=== PATIENT | male | born 1975 | race Caucasian/White ===

== ENCOUNTER 2017-10-06 03:18 | Emergency (ER) | payer OTHER ==
[2017-10-06] MEDS ORDERED: ASPIRIN 81 MG TABLET, CHEWABLE PO ONE (03:38)
[2017-10-06 03:53] LABS: ABSOLUTE BASOPHILS # (AUTO) 0.1 10^3/uL (0.0-0.2); ABSOLUTE EOSINOPHILS # (AUTO) 0.5 10^3/uL (0.0-0.6); ABSOLUTE LYMPHOCYTES (AUTO) 2.8 10^3/uL (0.5-4.7); ABSOLUTE MONOCYTES (AUTO) 0.7 10^3/uL (0.1-1.4); ABSOLUTE NEUT (AUTO) 5.4 10^3/uL (1.7-8.2); BASOPHILS % (AUTO) 0.8 % (0-2); EOSINOPHILS % (AUTO) 4.9 % (0-6); HEMATOCRIT 42.6 % (37.9-51.0); HEMOGLOBIN 14.4 g/dL (13.5-17.0); LYMPHOCYTES % (AUTO) 30.3 % (13-45); MEAN CORPUSCULAR HEMOGLOBIN 29.3 pg (27.0-33.4); MEAN CORPUSCULAR HGB CONC 33.7 g/dL (32.0-36.0); MEAN CORPUSCULAR VOLUME 87 fl (80-97); PLATELET COUNT 268 10^3/uL (150-450); TOTAL CELLS COUNTED % (AUTO) 100 %; WHITE BLOOD COUNT 9.4 10^3/uL (4.0-10.5)
[2017-10-06 03:58] LABS: ALANINE AMINOTRANSFERASE 64 U/L (21-72); ALBUMIN 3.9 g/dL (3.5-5.0); ALKALINE PHOSPHATASE 80 U/L (38-126); ANION GAP 8 (5-19); ASPARTATE AMINO TRANSFERASE 24 U/L (17-59); BLOOD UREA NITROGEN 19 mg/dL (7-20); CALCIUM 9.2 mg/dL (8.4-10.2); CARBON DIOXIDE 30 mmol/L (22-30); CHLORIDE 103 mmol/L (98-107); CREATINE KINASE 301 U/L (55-170); GLUCOSE 137 mg/dL (75-110); POTASSIUM 3.8 mmol/L (3.6-5.0); TOTAL PROTEIN 6.4 g/dL (6.3-8.2)
[2017-10-06] MEDS ORDERED: PANTOPRAZOLE SODIUM 40 MG VIAL IV ONE (03:58)
[2017-10-06] MEDS ORDERED: ONDANSETRON HCL INJ/PF 4 MG/2 ML SDV IV ONE (04:01)
--- NOTE | 2017-10-06 04:04 | ER Document Report ---
ED General - General Mode of Arrival: Medic Information source: Patient - HPI Patient complains to provider of: Chest Pain Onset: This morning - 0200 Associated symptoms: Other - see notes above <RUSTY LOPEZ - Last Filed: 10/06/17 04:04> <PANDA GONZALEZ - Last Filed: 10/06/17 06:02> - General Chief Complaint: Chest Pain Stated Complaint: CHEST PAIN Time Seen by Provider: 10/06/17 03:24 Notes: 41 year old male presents to the ED via EMS complaining of generalized chest pain that woke the patient up from sleep at 0200 this morning. Patient reports that he had a few drinks tonight. Patient has a past abdominal surgery secondary to diverticulitis. (RUSTY LOPEZ) - Related Data Allergies/Adverse Reactions: No Known Allergies Allergy (Unverified 10/06/17 04:50) Past Medical History - General Information source: Patient - Social History Smoking Status: Current Every Day Smoker Frequency of alcohol use: Heavy Family History: Reviewed & Not Pertinent - Medical History Medical History: Negative Past Surgical History: Reports: Hx Abdominal Surgery - diverticulitis <RUSTY LOPEZ - Last Filed: 10/06/17 04:04> Review of Systems - Review of Systems Constitutional: No symptoms reported EENT: No symptoms reported Cardiovascular: See HPI, Chest pain Respiratory: No symptoms reported Gastrointestinal: No symptoms reported Genitourinary: No symptoms reported Male Genitourinary: No symptoms reported Musculoskeletal: No symptoms reported Skin: No symptoms reported Hematologic/Lymphatic: No symptoms reported Neurological/Psychological: No symptoms reported -: Yes All other systems reviewed and negative <RUSTY LOPEZ - Last Filed: 10/06/17 04:04> Physical Exam <RUSTY LOPEZ - Last Filed: 10/06/17 04:04> - Vital signs Interpretation: Normal - General General appearance: Alert In distress: Mild - HEENT Head: Normocephalic, Atraumatic Eyes: Normal Pupils: PERRL - Respiratory Respiratory status: No respiratory distress Chest status: Nontender Breath sounds: Normal Chest palpation: Normal - Cardiovascular Rhythm: Regular Heart sounds: Normal auscultation Murmur: No - Abdominal Inspection: Normal Distension: No distension Bowel sounds: Normal Tenderness: Tender - Mild epigastric Organomegaly: No organomegaly - Back Back: Normal, Nontender - Extremities General upper extremity: Normal inspection, Nontender, Normal color, Normal ROM , Normal temperature General lower extremity: Normal inspection, Nontender, Normal color, Normal ROM , Normal temperature, Normal weight bearing. No: Minnie's sign - Neurological Neuro grossly intact: Yes Cognition: Normal Orientation: AAOx4 [place] Coma Scale Eye Opening: Spontaneous [place] Coma Scale Verbal: Oriented Andi Coma Scale Motor: Obeys Commands [place] Coma Scale Total: 15 Speech: Normal Motor strength normal: LUE, RUE, LLE, RLE Sensory: Normal - Psychological Associated symptoms: Normal affect, Normal mood - Skin Skin Temperature: Warm Skin Moisture: Dry Skin Color: Normal <PANDA GONZALEZ - Last Filed: 10/06/17 06:02> - Vital signs Vitals: Pulse Ox 97 10/06/17 03:30 - General Notes: in pain (PANDA GONZALEZ) Course - Laboratory Result Diagrams: 10/06/17 03:36 10/06/17 03:36 <RUSTY LOPEZ - Last Filed: 10/06/17 04:04> - Laboratory Result Diagrams: 10/06/17 03:36 10/06/17 03:36 - Diagnostic Test Radiology reviewed: Reports reviewed - EKG Interpretation by Me EKG shows normal: Sinus rhythm Rate: Normal Rhythm: NSR <PANDA GONZALEZ - Last Filed: 10/06/17 06:02> - Re-evaluation Re-evalutation: 10/06/17 04:50 Patient is a 41-year-old male who comes in today complaining of epigastric and chest pain. Denies any radiation to his back. Patient has been drinking this evening. Denies any trauma. Patient denies any past medical history except for diverticulitis. He has had surgery for diverticulitis in the past. 10/06/17 05:59 Patient has had complete resolution of symptoms with GI cocktail. Patient is low risk for cardiac event. No evidence for PE. Symptoms are epigastric pain radiating into his chest consistent with reflux/gastritis. Patient was drinking this past evening. No evidence for pancreatitis. He will be discharged home with GI medications. Follow-up with PMD. Return if any worsening or concerning symptoms. (PANDA GONZALEZ) - Vital Signs Vital signs: Temp Pulse Resp BP Pulse Ox 97.7 F 18 113/64 98 10/06/17 04:05 10/06/17 04:01 10/06/17 04:01 10/06/17 04:42 - Laboratory Laboratory results interpreted by me: 10/06/17 03:36 Glucose 137 H Total Bilirubin < 0.1 L Creatine Kinase 301 H Discharge <RUSTY LOPEZ - Last Filed: 10/06/17 04:04> <APNDA GONZALEZ - Last Filed: 10/06/17 06:02> - Discharge Clinical Impression: Atypical chest pain GERD (gastroesophageal reflux disease) Qualifiers: Esophagitis presence: esophagitis presence not specified Qualified Code(s): K21.9 - Gastro-esophageal reflux disease without esophagitis Condition: Stable Disposition: HOME, SELF-CARE Instructions: Chest Pain of Unclear Cause ([facility]), Gastritis ([facility]), Reflux Disease (GERD) ([facility]) Prescriptions: Omeprazole 20 mg PO DAILY #30 tablet. Ranitidine HCl 150 mg PO BID #60 tablet Sucralfate [Carafate 1 gm Tablet] 1 gm PO ACHS #30 tablet Forms: Return to Work Referrals: EDWARD FAGAN MD [Primary Care Provider] - Follow up as needed Scribe Attestation: 10/06/17 06:01 I personally performed the services described in the documentation, reviewed and edited the documentation which was dictated to the scribe in my presence, and it accurately records my words and actions. (PANDA GONZALEZ) Scribe Documentation - Scribe Written by Melissaibe:: Carol Whitehead, 10/06/2017 0404 acting as scribe for :: Eugenio <RUSTY LOPEZ - Last Filed: 10/06/17 04:04>
[2017-10-06 04:10] LABS: CREATINE KINASE MB 2.16 ng/mL (<4.55)
[2017-10-06 04:12] LABS: BILIRUBIN,TOTAL < 0.1 mg/dL (0.2-1.3); TROPONIN I < 0.012 ng/mL
--- NOTE | 2017-10-06 05:11 | RADIOLOGY REPORT (SQ) ---
EXAM DESCRIPTION: CHEST SINGLE VIEW CLINICAL HISTORY: 41 years, Male, sob COMPARISON: None. FINDINGS: Normal lung volume, clear parenchyma, normal cardiac silhouette, and intact bony thorax. IMPRESSION: No acute cardiopulmonary findings. 2011 [employer]- All Rights Reserved
[2017-10-06] MEDS ORDERED: SUCRALFATE 1 GM TABLET PO ONE (05:23)
[2017-10-06 06:17] VITALS: BP 120/80
--- NOTE | 2017-10-06 07:23 | EKG REPORT ---
SEVERITY:- NORMAL ECG - SINUS RHYTHM : Confirmed by: Nicholas De La Paz MD 06-Oct-2017 07:23:04
== END 2017-10-06 06:18 | disposition home or self-care (01) ==
LOC: ER 03:18
DX: K21.9 Gastro-esophageal reflux disease without esophagitis (principal); R07.89 Other chest pain; R10.13 Epigastric pain; F17.200 Nicotine dependence, unspecified, uncomplicated; Z87.19 Personal history of other diseases of the digestive system; Z98.890 Other specified postprocedural states
CPT/HCPCS: 93005; 99285; 96374; 96375; 36415; 82553; 82550; 83690; 85025; 80053; 84484; 71045; 93010; S0164; J2405